=== PATIENT | female | born 1985 | race Caucasian/White ===

== ENCOUNTER 2016-10-22 13:31 | Inpatient (IN) | payer MEDICAID ==
[~2016-10-22] VITALS: Ht 162.6 cm; Wt 72.7 kg
[~2016-10-22 13:31] MED LIST: LACTATED RINGER'S 1,000 ML IV PRN
--- NOTE | 2016-10-22 13:39 | TRIAGE ---
OB Triage Datetime Report Generated by CPN: 10/22/2016 13:39 Datetime: 10/22/2016 13:36 Time of Arrival: 10/22/2016 13:20 Arrived By: Ambulance Arrived From: Emergency Dept Chief Complaint: UC'S Movement: Present Time Contractions Began: 10/22/2016 05:00 Rupture of Membranes: Denies Vaginal Discharge: Denies Recent Sexual Intercouse: Denies Abdominal Trauma: Not Applicable Time Provider Notified: 10/22/2016 13:25 Provider Notified: DR. DUARTE Initial Plan: V/E: 3 Datetime: 10/22/2016 13:20 Stage of : OB Triage Assessment Type: Triage Maternal Assessment Level of Consciousness: Fully Conscious DTR's/Clonus: DTRs 2+; No Clonus Headache: Denies Blurred Vision: No Respiratory Effort: Unlabored; Regular Rhythm; Equal Expansion Breath Sounds, Left: Clear and Equal Breath Sounds, Right: Clear and Equal Nausea/Vomiting: Denies RUQ Epigastric Pain: Denies Lower Extremities Edema: None Degree: None Facial Edema: None Temperature Route: Axillary Fall Risk Assessment History of Falling: (0) No Secondary Diagnosis: (0) No Ambulatory Aid: (0) Bedrest/Nurse Assist IV Therapy: (0) No Gait: (0) Normal/Bedrest/Immobile Mental Status: (0) Oriented to Own Ability Fall Score: 0 Fall Risk Score Definition: No Risk: No action required
[2016-10-22] MEDS: LACTATED RINGER'S 1,000 ML IV SCH ×2 (13:40→14:07)
[2016-10-22] MEDS ORDERED: AMPICILLIN 2 GM/NS (PMX) 100 ML ONE (13:45)
[2016-10-22] MEDS ORDERED: LIDOCAINE 1% (MPF) 30 ML INJ ONE (13:59)
[2016-10-22] MEDS ORDERED: OXYTOCIN 30 UNITS/LR 500 ML IV SCH ×3 (14:00→16:52)
[2016-10-22] MEDS ORDERED: MISOPROSTOL 200 MCG TAB PR PRN ×2 (14:00→17:00)
[2016-10-22] MEDS ORDERED: LIDOCAINE 1% (MPF) 30 ML INJ INJ PRN (14:00)
[2016-10-22] MEDS ORDERED: OXYTOCIN 30 UNITS/LR 500 ML IV PRN ×2 (14:00→17:00)
[2016-10-22] MEDS ORDERED: IBUPROFEN 600 MG TAB PO PRN (14:00)
[2016-10-22] MEDS ORDERED: CARBOPROST 250 MCG INJ IM PRN ×2 (14:00→17:00)
[2016-10-22] MEDS ORDERED: METHYLERGONOVINE 0.2 MG INJ IM PRN ×2 (14:00→17:00)
[2016-10-22] MEDS ORDERED: BUTORPHANOL 2 MG INJ IV PRN (14:00)
[2016-10-22] MEDS ORDERED: AMPICILLIN 2 GM/NS (PMX) 100 ML IV ONE (14:00)
[2016-10-22 14:14] LABS: ADD SCAN DIFF NO
[2016-10-22 14:19] LABS: BASOPHILS % 0.2 % (0.0-2.0); HEMATOCRIT 36.7 % (37.0-47.0); HEMOGLOBIN 12.5 g/dl (12.0-16.0); LYMPHOCYTES # 1.7 10^3/ul (0.8-2.9); LYMPHOCYTES % 10.7 % (15.0-51.0); MEAN CORPUSCULAR HEMOGLOBIN 29.8 pg (29.0-33.0); MEAN CORPUSCULAR HGB CONC 34.1 g/dl (32.0-37.0); MEAN CORPUSCULAR VOLUME 87.4 fl (82.0-101.0); MEAN PLATELET VOLUME 10.9 fl (7.4-10.4); MONOCYTE # 0.6 10^3/ul (0.3-0.9); MONOCYTES % 3.9 % (0.0-11.0); NEUTROPHIL # 13.3 10^3/ul (1.6-7.5); NEUTROPHILS % 84.7 % (39.0-77.0); PLATELET COUNT 338 10^3/UL (140-415); RED CELL DISTRIBUTION WIDTH 14.1 % (11.5-14.5); WHITE BLOOD COUNT 15.7 10^3/ul (4.8-10.8)
[2016-10-22 14:31] LABS: POTASSIUM 3.6 mmol/L (3.5-5.1)
[2016-10-22 14:33] LABS: ALBUMIN/GLOBULIN RATIO 1.05; BILIRUBIN,INDIRECT 0.1 mg/dl (0-1.1); BILIRUBIN,TOTAL 0.1 mg/dl (0.2-1.3); CREATININE 0.51 mg/dl (0.44-1.00); TOTAL PROTEIN 7.8 g/dl (6.1-8.1)
[2016-10-22 14:34] LABS: CALCIUM 8.9 mg/dl (8.4-10.2)
--- NOTE | 2016-10-22 14:41 | HP ---
Date/Time of Note Date/Time of Note DATE: 10/22/16 TIME: 14:30 OB - History Hx of Present Free Text/Dictation October 22, 2016 History and physical This patient is 31 years old 1 para 0 who states that her last menstrual period was March 01, 2060 . she was transferred from [facility] in active labor Apparently she did not have any care, no lab test or any ultrasound studies. When she arrived to labor and delivery of [facility] cervix was already 7 cm with bulging membrane On exam. her vital signs were within normal limits her ear nose throat appear to be normal Neck was normal no thyroid enlargement no lymph node enlargement anywhere in the body her chest was clear to auscultation percaution . Heart normal sinus rhythm no murmur. Abdomen was soft she was vicenta every 3-4 minutes .Fetus was vertex presentation extremities were negative . No ankle edema no varicosities Family history :she denies any abnormal in the family. No history of diabetes no other anomalies in the family She said she did not have any complication or problem during this Denies any allergy to any medication, has not been taking her calcium or vitamin pills during this Process of labor.: She continued her contractions and made progress to complete dilatation without any event. Amniotic membranes ruptured in about half an hour prior , amniotic fluid was slightly meconium-stained . Her delivery was spontaneous without much difficulty. Cord was clamped and cut and the was handed to the nursery nurse. erineum was intact Her estimated blood loss was about 200 cc [place] was male. 9 and 4 minute 9 in 5 minutes. The weight of the baby was 6 pounds and 10 pounds. Estimated blood loss was about 200 cc Her labs are still in process . 31 Her vital signs are stable after delivery Laboratory Tests Test 10/22/16 13:45 Alanine Aminotransferase (ALT/SGPT) 21IU/L Albumin 4.0g/dl Albumin/Globulin Ratio 1.05 Alkaline Phosphatase 165IU/L Anion Gap 22 Aspartate Amino Transf (AST/SGOT) 20IU/L Basophils # 0.010^3/ul Basophils % 0.2% Blood Urea Nitrogen 7mg/dl Calcium Level Pending Carbon Dioxide Level 17mmol/L Chloride Level 105mmol/L Creatinine 0.51mg/dl Direct Bilirubin 0.00mg/dl Eosinophils # 0.010^3/ul Eosinophils % 0.0% Gamma Glutamyl Transpeptidase 24IU/L Globulin 3.80g/dl Glucose Level 98mg/dl Hematocrit 36.7% Hemoglobin 12.5g/dl Indirect Bilirubin 0.1mg/dl Lymphocytes # 1.710^3/ul Lymphocytes % 10.7% Mean Corpuscular Hemoglobin 29.8pg Mean Corpuscular Hemoglobin Concent 34.1g/dl Mean Corpuscular Volume 87.4fl Mean Platelet Volume 10.9fl Monocytes # 0.610^3/ul Monocytes % 3.9% Neutrophils # 13.310^3/ul Neutrophils % 84.7% Nucleated Red Blood Cells # 0.010^3/ul Nucleated Red Blood Cells % 0.0/100WBC Platelet Count 73373^3/UL Potassium Level 3.6mmol/L Red Blood Count 4.2010^6/ul Red Cell Distribution Width 14.1% Sodium Level 140mmol/L Total Bilirubin 0.1mg/dl Total Protein 7.8g/dl White Blood Count 15.710^3/ul Current Medications Medications (Trade) Dose Ordered Sig/Lambert Route PRN Reason Start Time Stop Time Status Last Admin Dose Admin Lactated Ringer's 1,000 ml @ 125 mls/hr Q8H IV 10/22/16 13:34 10/22/16 13:40 Ampicillin 100 ml @ 100 mls/hr ONCE ONCE IV 10/22/16 14:00 10/22/16 14:59 10/22/16 13:44 Ampicillin (Ampicillin 1 Gm/ NS (Pmx)) 50 ml @ 100 mls/hr Q4H IV 10/22/16 18:00 Butorphanol Tartrate (Stadol) 2 mg Q2H PRN IV PAIN 10/22/16 14:00 Lidocaine 30 ml 30 ml ONCE PRN INJ EPISIOTOMY/TEARING 10/22/16 14:00 Oxytocin/Lactated Ringer's 500 ml @ 125 mls/hr ONCE -MAY REPEAT X1 IV 10/22/16 14:00 Oxytocin/Lactated Ringer's 500 ml @ 125 mls/hr ONCE IV 10/22/16 14:00 10/22/16 14:14 Ibuprofen 600 mg 600 mg ONCE PRN PO Mild Pain (Pain Score 1-3) 10/22/16 14:00 Lactated Ringer's 1,000 ml @ 2,000 mls/hr Q30M PRN IV PRE-EPIDURAL BOLUS 10/22/16 13:30 Oxytocin/Lactated Ringer's 500 ml @ 0 mls/hr ONCE PRN IV For Hemorrhage Management 10/22/16 14:00 Methylergonovine Maleate (Methergine) 0.2 mg ONCE PRN IM VAGINAL BLEEDING 10/22/16 14:00 Carboprost Tromethamine (Hemabate) 250 mcg ONCE PRN IM VAGINAL BLEEDING 10/22/16 14:00 Misoprostol 1000 mcg 1,000 mcg ONCE PRN LA VAGINAL BLEEDING 10/22/16 14:00 Ampicillin (Ampicillin 2 Gm/ NS (Pmx)) 100 ml @ ud STK-MED ONCE .ROUTE 10/22/16 13:45 10/22/16 13:46 DC Lidocaine (Xylocaine 1% (Mpf)) 30 ml STK-MED ONCE .ROUTE 10/22/16 13:59 10/22/16 14:00 DC Past Family/Social History * Past Medical, Surgical, Family and Obstetric Histories reviewed from chart. OB Admission Exam Last 72 hours Lab Results CBC & BMP 10/22/16 13:45 ANGLE DUARTE MD Oct 22, 2016 14:41
[2016-10-22 16:30] VITALS: BP 146/94; PULSE 74; RESP 18
[2016-10-22 16:30] LABS: ADD UMIC YES; URINE BILIRUBIN (Dip) NEGATIVE (NEGATIVE); URINE BLOOD (Dip) 1+ (NEGATIVE); URINE COLOR LT. YELLOW (YELLOW); URINE GLUCOSE (Dip) NEGATIVE (NEGATIVE); URINE KETONES (Dip) 15 (NEGATIVE); URINE LEUKOCYTE ESTERASE (Dip) NEGATIVE (NEGATIVE); URINE NITRITE (Dip) NEGATIVE (NEGATIVE); URINE TOTAL PROTEIN (Dip) NEGATIVE (NEGATIVE); URINE UROBILINOGEN (Dip) 0.2 E.U./dL (0.1-1.0)
[2016-10-22 16:48] VITALS: Ht 162.6 cm; Wt 72.7 kg
[2016-10-22 16:48] LABS: BARBITURATES NEGATIVE (NEGATIVE); BENZODIAZEPINES NEGATIVE (NEGATIVE); CANNABINOIDS POSITIVE (NEGATIVE); SQUAMOUS EPITHELIAL CELL,UR FEW; URINE RBCS 0-2 /HPF (0)
[2016-10-22 16:49] LABS: COCAINE NEGATIVE (NEGATIVE); OPIATES NEGATIVE (NEGATIVE)
[2016-10-22 16:50] VITALS: BP 145/99; PULSE 73
[2016-10-22] MEDS ORDERED: LANOLIN 7 GM TUBE TOP PRN (17:00)
[2016-10-22] MEDS ORDERED: ACETAMINOPHEN 500 MG TAB PO PRN (17:00)
[2016-10-22] MEDS ORDERED: SENNA/DOCUSATE NA (8.6MG/50MG) TAB PO PRN (17:00)
[2016-10-22] MEDS ORDERED: DIBUCAINE 1% 30 GM OINT PR PRN (17:00)
[2016-10-22] MEDS ORDERED: OXYCODONE/ASPIRIN (4.88/325) TAB PO PRN ×2 (17:00)
[2016-10-22] MEDS: WITCH HAZEL/GLYCERIN PAD PR PRN (17:41)
[2016-10-22] MEDS: IBUPROFEN 600 MG TAB PO PRN (17:41)
[2016-10-22] MEDS: BENZOCAINE 20% 56 ML SPRAY TOP PRN (17:41)
[2016-10-22] MEDS ORDERED: AMPICILLIN 1 GM/NS (PMX) 50 ML IV SCH (18:00)
[2016-10-22 20:30] VITALS: BP 140/70; PULSE 75; RESP 18
[2016-10-23 04:45] VITALS: BP 119/64; PULSE 64; RESP 19
[2016-10-23] MEDS: IBUPROFEN 600 MG TAB PO PRN ×3 (05:55→17:18)
[2016-10-23 07:50] VITALS: BP 140/79; PULSE 55; RESP 18
[2016-10-23 08:05] LABS: ADD SCAN DIFF NO
[2016-10-23 08:42] LABS: BASOPHILS % 0.2 % (0.0-2.0); EOSINOPHILS % 0.1 % (0.0-7.0); HEMATOCRIT 33.7 % (37.0-47.0); LYMPHOCYTES # 2.1 10^3/ul (0.8-2.9); LYMPHOCYTES % 16.7 % (15.0-51.0); MEAN CORPUSCULAR HEMOGLOBIN 29.3 pg (29.0-33.0); MEAN CORPUSCULAR HGB CONC 32.6 g/dl (32.0-37.0); MEAN CORPUSCULAR VOLUME 89.6 fl (82.0-101.0); MEAN PLATELET VOLUME 11.2 fl (7.4-10.4); MONOCYTE # 0.7 10^3/ul (0.3-0.9); MONOCYTES % 5.5 % (0.0-11.0); NEUTROPHIL # 9.8 10^3/ul (1.6-7.5); PLATELET COUNT 238 10^3/UL (140-415); RED BLOOD COUNT 3.76 10^6/ul (4.20-5.40); RED CELL DISTRIBUTION WIDTH 14.5 % (11.5-14.5); WHITE BLOOD COUNT 12.7 10^3/ul (4.8-10.8)
--- NOTE | 2016-10-23 15:02 | PN ---
Date/Time of Note Date/Time of Note DATE: 10/23/16 TIME: 14:58 OB Subjective Subjective Subjective Reports vaginal bleeding significantly decreased. Denies any complaint. Ambulated. Urinated. Denies any complaint. Desires to give the baby for adoption. She is awaiting for director social service for process of adoption. OB Objective Objective Objective General appearance: Patient is alert and oriented 4 and is not in any acute distress. Abdomen: Soft, nontender, fundus is firm. No rebound tenderness no fundal tenderness Extremities: No calf tenderness no click no edema Hematology - 72 Hrs Test 10/22/16 13:45 10/23/16 07:33 Basophils # 0.010^3/ul (0.0-0.1) 0.010^3/ul (0.0-0.1) Basophils % 0.2% (0.0-2.0) 0.2% (0.0-2.0) Eosinophils # 0.010^3/ul (0.0-0.5) 0.010^3/ul (0.0-0.5) Eosinophils % 0.0% (0.0-7.0) 0.1% (0.0-7.0) Hematocrit 36.7% (37.0-47.0) L 33.7% (37.0-47.0) L Hemoglobin 12.5g/dl (12.0-16.0) 11.0g/dl (12.0-16.0) L Lymphocytes # 1.710^3/ul (0.8-2.9) 2.110^3/ul (0.8-2.9) Lymphocytes % 10.7% (15.0-51.0) L 16.7% (15.0-51.0) Mean Corpuscular Hemoglobin 29.8pg (29.0-33.0) 29.3pg (29.0-33.0) Mean Corpuscular Hemoglobin Concent 34.1g/dl (32.0-37.0) 32.6g/dl (32.0-37.0) Mean Corpuscular Volume 87.4fl (82.0-101.0) 89.6fl (82.0-101.0) Mean Platelet Volume 10.9fl (7.4-10.4) H 11.2fl (7.4-10.4) H Monocytes # 0.610^3/ul (0.3-0.9) 0.710^3/ul (0.3-0.9) Monocytes % 3.9% (0.0-11.0) 5.5% (0.0-11.0) Neutrophils # 13.310^3/ul (1.6-7.5) H 9.810^3/ul (1.6-7.5) H Neutrophils % 84.7% (39.0-77.0) H 77.0% (39.0-77.0) Nucleated Red Blood Cells # 0.010^3/ul (0.0-0.0) 0.010^3/ul (0.0-0.0) Nucleated Red Blood Cells % 0.0/100WBC (0.0-0.0) 0.0/100WBC (0.0-0.0) Platelet Count 24816^3/UL (140-415) 72262^3/UL (140-415) # Red Blood Count 4.2010^6/ul (4.20-5.40) 3.7610^6/ul (4.20-5.40) L Red Cell Distribution Width 14.1% (11.5-14.5) 14.5% (11.5-14.5) White Blood Count 15.710^3/ul (4.8-10.8) H 12.710^3/ul (4.8-10.8) H Chemistry Test 10/22/16 13:45 Alanine Aminotransferase (ALT/SGPT) 21IU/L (13-69) Albumin 4.0g/dl (3.3-4.9) Albumin/Globulin Ratio 1.05 Alkaline Phosphatase 165IU/L (42-121) H Anion Gap 22 (8-16) H Aspartate Amino Transf (AST/SGOT) 20IU/L (15-46) Blood Urea Nitrogen 7mg/dl (7-20) Calcium Level 8.9mg/dl (8.4-10.2) Carbon Dioxide Level 17mmol/L (21-31) L Chloride Level 105mmol/L (97-110) Creatinine 0.51mg/dl (0.44-1.00) Direct Bilirubin 0.00mg/dl (0.00-0.20) Gamma Glutamyl Transpeptidase 24IU/L (0-50) Globulin 3.80g/dl (1.3-3.2) H Glucose Level 98mg/dl (70-220) Indirect Bilirubin 0.1mg/dl (0-1.1) Potassium Level 3.6mmol/L (3.5-5.1) Sodium Level 140mmol/L (135-144) Total Bilirubin 0.1mg/dl (0.2-1.3) L Total Protein 7.8g/dl (6.1-8.1) OB Assessment/Plan Other Assessment: PPD #1 Status post Patient had no care. was undesired and unplanned. She plans to give up the baby for adoption. Awaiting for director social service to complete the process U tox positive for marijuana No evidence of breast engorgement Plan: Expectant Management Other plan: Anticipate DC home tomorrow Advised about immunizations including Tdap and rubella prior to discharge home as well as long-term contraception during her visits at or less than 6 weeks with her nurse charge rn. L ARC contraceptives discussed with the patient. Considers Nexplanon Does not desire to pump the breast. Advise about tight bra as well as cold ice pack. CHRISTA PRICE MD Oct 23, 2016 3:02 pm
[2016-10-23 15:45] VITALS: BP 140/94; PULSE 69; RESP 18
[2016-10-23] MEDS: WITCH HAZEL/GLYCERIN PAD PR PRN (17:21)
[2016-10-23] MEDS: BENZOCAINE 20% 56 ML SPRAY TOP PRN (17:21)
[2016-10-24] MEDS ORDERED: DIPHTH/TET/ACEL PERTUSS (ADULT) 0.5 ML VIAL IM* ONE (09:00)
[2016-10-24 15:05] LABS: RUBELLA ANTIBODY - IGG 9.82 index
== END 2016-10-23 20:50 | disposition home or self-care (01) | DRG 775 ==
LOC: OBT 13:31 → L-D 13:32 → PP1 16:30
PROC: 10E0XZZ Delivery of Products of Conception, External Approach (ICD-10-PCS; principal; 2016-10-22)
DX: O99.324 Drug use complicating childbirth (principal); F12.90 Cannabis use, unspecified, uncomplicated; Z3A.38 38 weeks gestation of pregnancy; Z37.0 Single live birth
CPT/HCPCS: 80053; 80307; 81001; 81003; 82977; 85025; 86592; 86703; 86762; 86900; 86901; 87340; 99464; A4310; G0463; J0290; J2590; J7120